=== PATIENT | female | born 1955 | race Caucasian/White ===

== ENCOUNTER 2021-04-30 02:36 | Emergency (ER) | payer SELFPAY ==
[~2021-04-30] VITALS: Ht 167.6 cm; Wt 75.5 kg
--- NOTE | 2021-04-30 02:41 | PHYS DOC ---
Past History Past Medical History: Alcoholism Alcohol Use: Heavy General Adult HPI: HPI: " Fuck it.. just fuck..it.. ".. ".. I just fell".. Patient is a 65 year old female who presents with above hx of excessive ETOH intake and a trip and fall. Pt. has 5 cm lac to right scalp/fore head. Has abrasion and edema to right cheek,and face. . Patient extremely poor historian due to her intoxication. 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 Patient very poor historian. Patient currently localizes pain to primary to her forehead laceration. Various bystanders who witnessed her fall at the ' "[employer]", report trip with fall into [employer] rail. Some report loss of consciousness, other stated no loss of consciousness. All reported heavy alcohol intake prior the trip and fall. Pt. has had an intentional Wt. loss this past year of approximately 60 lbs. Patient normally follows with Dr.Neal Kirby. Review of Systems: Review of Systems: Review of system is somewhat limited due to patient's appearance of marked alcohol intoxication Constitutional: Denies fever or chills Eyes: Denies change in visual acuity HENT: Denies nasal congestion or sore throat. Has complaints of forehead and facial contusion and laceration. Respiratory: Denies cough or shortness of breath Cardiovascular: Denies chest pain or edema GI: Denies abdominal pain, nausea, vomiting, bloody stools or diarrhea : Denies dysuria Musculoskeletal: Denies back pain or joint pain Integument: Denies rash Neurologic: Complains of headache. Denies, focal weakness or sensory changes Endocrine: Denies polyuria or polydipsia Lymphatic: Denies swollen glands Psychiatric: Denies depression or anxiety Family History: Family History: Noncontributory to presentation Current Medications: Current Meds: See nursing for home meds Allergies: Allergies: Penicillin Physical Exam: PE: Constitutional: acute distress, intoxicated and appearance. [] Strong smell of alcoholic beverage about her person and vomit HENT: Normocephalic, contusions right side of face and abrasions with 5 cm laceration to right forehead and scalp, bilateral external ears normal, oropharynx moist, no oral exudates, nose normal. No blood behind TM. Teeth appear to be stable. Has good bite. Eyes: PERRLA, EOMI, conjunctiva injected, no discharge. [] Neck:. no tenderness,. Patient attempting to remove collar Cardiovascular: Tachycardia heart rate regular rhythm, no murmur [, PMI to left Lungs & Thorax: Bilateral breath sounds equal and apex with few scattered wheezes on auscultation [] Abdomen: Bowel sounds decreased, soft, no tenderness, no masses, no pulsatile masses. Vomiting Skin: Warm, dry, no erythema, no rash. Poor turgor. Back: No tenderness, no CVA tenderness. [] Extremities: No tenderness, no cyanosis, no clubbing, no edema. [] Neurologic gives name and date of , moves all extremities on request,, has distal sensory function, . Generalized discoordination. Slurred speech. Psychologic: Affect angry and judgement currently obviously impaired, mood depressed EKG: EKG: My interpretation EKG shows a sinus rhythm at 66 bpm. Does have a long QT interval at 460 ms and QTC at 484 ms. No findings of acute STEMI of contralater al changes. Time of EKG is 0300 hrs. [] Radiology/Procedures: Radiology/Procedures: [address] [address] IMAGING REPORT Signed PATIENT: KALYN JIMENEZ ACCOUNT: [id number] : 1955 LOCATION: ER AGE: 65 SEX: F EXAM STATUS: PRE ER ORD. PHYSICIAN: DON GARIBAY MD REASON: fall PROCEDURE: PORTABLE CHEST 1V EXAMINATION: XR CHEST 1V CLINICAL HISTORY: Fall EXAM DATE/TIME: 04/30/2021 3:14 AM COMPARISON: None FINDINGS: Lines, Tubes, and Devices: None. Cardiomediastinal Silhouette: Normal heart size. Lungs and Pleura: Pulmonary hypoexpansion without evidence of focal airspace consolidation, pleural effusion, or pneumothorax. Bones and Soft Tissues: Degenerative changes in the thoracic spine. IMPRESSION: No evidence of acute cardiopulmonary abnormality. Electronically signed by: Reza Coughlin DO (04/30/2021 3:56 AM) [facility] DICTATED AND SIGNED BY: REZA COUGHLIN DO DATE: 04/30/21 0355 CC: DON GARIBAY MD ~MTH0 0 [][place] [address] IMAGING REPORT Signed PATIENT: KALYN JIMENEZ ACCOUNT: [id number] : 1955 LOCATION: ER AGE: 65 SEX: F EXAM STATUS: PRE ER ORD. PHYSICIAN: DON GARIBAY MD REASON: face plant into guard rail PROCEDURE: CT HEAD AND MAXILLOFACIAL WO EXAMINATION: CT HEAD AND MAXILLOFACIAL WO, CT CERVICAL SPINE WO CLINICAL HISTORY: Head trauma, face plant into guard rail TECHNIQUE: Serial axial images without IV contrast were obtained from the vertex to the foramen magnum. Spiral high resolution axial unenhanced images were obtained through the facial bones with sagittal and coronal planar reconstructions. CT of the cervical spine without IV contrast. Spiral, high resolution axial images were obtained from the skull base to the cervicothoracic junction with sagittal and coronal planar reconstructions. CT Dose Reduction Employed: One or more of the following individualized dose reduction techniques were utilized for this examination: 1. Automated exposure control 2. Adjustment of the mA and/or kV according to patient size 3. Use of iterative reconstruction technique. COMPARISON: None FINDINGS: BRAIN: Acute Change: No evidence of an acute contusion or other acute parenchymal process. Hemorrhage: No evidence of acute intracranial hemorrhage. Mass Lesion/Mass Effect: No evidence of intracranial mass or extraaxial fluid collection. No significant mass effect. Chronic Change: Scattered patchy foci of hypoattenuation in the supratentorial white matter, nonspecific but likely represents minimal microvascular ischemia. Atherosclerotic calcification of the bilateral carotid siphons. Parenchyma: No significant volume loss. Parenchyma otherwise within normal limits for age. Ventricles: Ventricles within normal limits for age. Skull Base and Soft Tissues: No evidence of acute calvarial fracture. Skin closure lakshmi along the anteromedial right frontal scalp. MAXILLOFACIAL: Soft Tissues: Mild right malar subcutaneous edema/small contusion. Facial Bones: No evidence of acute facial bone fracture. Moderate to severe right temporomandibular joint arthropathy. Orbits: No evidence of acute orbital fracture. Globes are intact. Soft tissue planes of the orbits maintained. Paranasal Sinuses: No significant sinus disease. C-SPINE: Alignment: Normal anatomic alignment. Osseous Structures: No evidence of acute fracture or spondylolisthesis. Degenerative Changes: Multilevel moderate degenerative disc disease, greatest at C5-6. On the monitor multilevel neural foraminal narrowing, greatest at C5-6 on the left. No evidence of high-grade osseous spinal stenosis. Multilevel facet arthropathy, greater on the left. Cervical Soft Tissues: No prevertebral soft tissue swelling. 1.1 cm peripherally calcified nodule in the right thyroid gland. IMPRESSION: BRAIN: No evidence of acute intracranial abnormality. Skin closure lakshmi along the right frontal scalp. MAXILLOFACIAL: No evidence of acute facial bone fracture. Mild right malar subcutaneous edema/small contusion. 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 C-SPINE: No evidence of acute osseous abnormality involving the cervical spine. Mild to moderate multilevel degenerative disc disease and neural foraminal narrowing, greatest at C5-6. 1.1 cm right thyroid nodule, recommend nonemergent/outpatient thyroid ultrasound for further evaluation. Electronically signed by: Reza Coughlin DO (04/30/2021 4:23 AM) [facility] DICTATED AND SIGNED BY: REZA COUGHLIN DO DATE: 04/30/21357 CC: DON GARIBAY MD ~MTH0 [address] [address] IMAGING REPORT Signed PATIENT: KALYN JIMENEZ ACCOUNT: [id number] : 1955 LOCATION: ER AGE: 65 SEX: F EXAM STATUS: PRE ER ORD. PHYSICIAN: DON GARIBAY MD REASON: face plant into guard rail PROCEDURE: CT HEAD AND MAXILLOFACIAL WO EXAMINATION: CT HEAD AND MAXILLOFACIAL WO, CT CERVICAL SPINE WO CLINICAL HISTORY: Head trauma, face plant into guard rail TECHNIQUE: Serial axial images without IV contrast were obtained from the vertex to the foramen magnum. Spiral high resolution axial unenhanced images were obtained through the facial bones with sagittal and coronal planar reconstructions. CT of the cervical spine without IV contrast. Spiral, high resolution axial images were obtained from the skull base to the cervicothoracic junction with sagittal and coronal planar reconstructions. CT Dose Reduction Employed: One or more of the following individualized dose reduction techniques were utilized for this examination: 1. Automated exposure control 2. Adjustment of the mA and/or kV according to patient size 3. Use of iterative reconstruction technique. COMPARISON: None FINDINGS: BRAIN: Acute Change: No evidence of an acute contusion or other acute parenchymal process. Hemorrhage: No evidence of acute intracranial hemorrhage. Mass Lesion/Mass Effect: No evidence of intracranial mass or extraaxial fluid collection. No significant mass effect. Chronic Change: Scattered patchy foci of hypoattenuation in the supratentorial white matter, nonspecific but likely represents minimal microvascular ischemia. Atherosclerotic calcification of the bilateral carotid siphons. Parenchyma: No significant volume loss. Parenchyma otherwise within normal limits for age. Ventricles: Ventricles within normal limits for age. Skull Base and Soft Tissues: No evidence of acute calvarial fracture. Skin closure lakshmi along the anteromedial right frontal scalp. MAXILLOFACIAL: Soft Tissues: Mild right malar subcutaneous edema/small contusion. Facial Bones: No evidence of acute facial bone fracture. Moderate to severe right temporomandibular joint arthropathy. Orbits: No evidence of acute orbital fracture. Globes are intact. Soft tissue planes of the orbits maintained. Paranasal Sinuses: No significant sinus disease. C-SPINE: Alignment: Normal anatomic alignment. Osseous Structures: No evidence of acute fracture or spondylolisthesis. Degenerative Changes: Multilevel moderate degenerative disc disease, greatest at C5-6. On the monitor multilevel neural foraminal narrowing, greatest at C5-6 on the left. No evidence of high-grade osseous spinal stenosis. Multilevel facet arthropathy, greater on the left. Cervical Soft Tissues: No prevertebral soft tissue swelling. 1.1 cm peripherally calcified nodule in the right thyroid gland. IMPRESSION: BRAIN: No evidence of acute intracranial abnormality. Skin closure lakshmi along the right frontal scalp. MAXILLOFACIAL: No evidence of acute facial bone fracture. Mild right malar subcutaneous edema/small contusion. 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 C-SPINE: No evidence of acute osseous abnormality involving the cervical spine. Mild to moderate multilevel degenerative disc disease and neural foraminal narrowing, greatest at C5-6. 1.1 cm right thyroid nodule, recommend nonemergent/outpatient thyroid ultrasound for further evaluation. Electronically signed by: Reza Coughlin DO (04/30/2021 4:23 AM) [facility] DICTATED AND SIGNED BY: REZA COUGHLIN DO DATE: 04/30/21 0358 CC: DON GARIBAY MD ~MTH0 0 Heart Score: C/O Chest Pain: N/A HEART Score for Chest Pain: HEART Score for Chest Pain Response (Comments) Value History Slighlty/Non-Suspicious 0 ECG Normal 0 Age >45 - < 65 1 Risk Factors 1 or 2 Risk Factors 1 Troponin < Normal Limit 0 Total 2 Risk Factors: Risk Factors: DM, Current or recent (<one month) smoker, HTN, HLP, family history of CAD, obesity. Risk Scores: Score 0 - 3: 2.5% MACE over next 6 weeks - Discharge Home Score 4 - 6: 20.3% MACE over next 6 weeks - Admit for Clinical Observation Score 7 - 10: 72.7% MACE over next 6 weeks - Early Invasive Strategies Course & Med Decision Making: Course & Med Decision Making Pertinent Labs and Imaging studies reviewed. (See chart for details) Shortly after arrival- Joseph Marques called ED- [phone]. Identified himself as her brother. Advised her date of as 1955.. Reportedly patient in good health. Has an allergy to penicillin. Procedure note: Laceration repair-laceration cleaned with peroxide.. Digital exploration showed no obvious step-off fracture on skull.. Additional cleaning with peroxide..Normal saline irrigation. Closed laceration with 5 lakshmi. Right cheek abrasion laceration clean cleaned with peroxide.. This required no lakshmi or sutures. Antibiotic ointment applied. Pt. having gradual improvement of mental. Now aware today is her brother day. Now following requests moving all extremities. Appears to be answering questions more appropriate. Pt. has removed her collar. Neck has no mid line tenderness. 0450 Hrs. Pt. discharged to care of brother at shift change. Patient to avoid further alcohol use today. Patient use ice packs as needed. Patient expect increased contusion, ecchymosis and swelling. Patient sleep of head elevated. Follow-up primary care.. Return if any concerns. Review ED work-up with primary care. At time of discharge patient amatory without problems.. Impression: 1. Closed Head Injury 2. Head Laceration 5 cm 3. Alcohol Intoxication 227 4. COVID -neg. 5. Mild hypokalemia 3.2 6.Thyroid nodule [] Dragon Disclaimer: Dragon Disclaimer: This electronic medical record was generated, in whole or in part, using a voice recognition dictation system. Dragon Disclaimer This chart was dictated in whole or in part using Voice Recognition software in a busy, high-work load, and often noisy Emergency Department environment. It may contain unintended and wholly unrecognized errors or omissions. Dragon Disclaimer This chart was dictated in whole or in part using Voice Recognition software in a busy, high-work load, and often noisy Emergency Department environment. It may contain unintended and wholly unrecognized errors or omissions. Dragon Disclaimer This chart was dictated in whole or in part using Voice Recognition software in a busy, high-work load, and often noisy Emergency Department environment. It ma y contain unintended and wholly unrecognized errors or omissions. DON GARIBAY MD Apr 30, 2021 02:41
[2021-04-30] MEDS ORDERED: ONDANSETRON PF 4 MG/2 ML VIAL. IVP ONE (02:45)
[2021-04-30] MEDS ORDERED: IV RINGERS SOLUTION,LACTATED 1,000 ML IV SCH (02:45)
[2021-04-30] MEDS ORDERED: FOLIC ACID 1 MG TABLET PO ONE (03:00)
[2021-04-30] MEDS ORDERED: DIPH,PERTUSS(ACELL),TET VAC/PF 0.5 ML SYRINGE. VAX IM ONE (03:00)
[2021-04-30] MEDS ORDERED: MVI, ADULT NO.4 WITH VIT K 10 ML, THIAMINE INJ 100 MG in IV RINGERS SOLUTION,LACTATED 1... IV ONE (03:00)
[2021-04-30 03:26] LABS: CALCIUM 8.3 mg/dL (8.5-10.1); CREATININE 0.8 mg/dL (0.6-1.0); GFR 72.4; POTASSIUM 3.2 mmol/L (3.5-5.1)
[2021-04-30] MEDS ORDERED: THIAMINE 200 MG/2 ML VIAL. IV ONE (03:26)
[2021-04-30 03:28] LABS: BASO % 0 % (0-3); EOS # 0.2 x10^3/uL (0.0-0.7); EOS % 2 % (0-3); HEMATOCRIT 43.1 % (36.0-47.0); HEMOGLOBIN 14.1 g/dL (12.0-15.5); LYMPH # 3.6 x10^3/uL (1.0-4.8); LYMPH % 39 % (24-48); MEAN CORPUSCULAR HEMOGLOBIN 30 pg (25-35); MEAN CORPUSCULAR HGB CONC 33 g/dL (31-37); MEAN CORPUSCULAR VOLUME 92 fL (79-100); MONO # 0.9 x10^3/uL (0.0-1.1); MONO % 10 % (0-9); NEUT # 4.6 x10^3uL (1.8-7.7); NEUT % 49 % (31-73); PLATELET COUNT 206 x10^3/uL (140-400); RED CELL DISTRIBUTION WIDTH 14.4 % (11.5-14.5); WHITE BLOOD COUNT 9.4 x10^3/uL (4.0-11.0)
[2021-04-30 03:39] LABS: ALBUMIN 3.4 g/dL (3.4-5.0); DIRECT BILIRUBIN 0.1 mg/dL (0.0-0.2); MAGNESIUM 2.3 mg/dL (1.8-2.4); TOTAL BILIRUBIN 0.2 mg/dL (0.2-1.0); TOTAL PROTEIN 7.1 g/dL (6.4-8.2)
[2021-04-30 03:40] LABS: BACTERIA,URINE FEW /HPF (0-FEW); BILIRUBIN,URINE NEG (NEG); CLARITY,URINE CLEAR; COLOR,URINE STRAW; GLUCOSE,URINE NEG (NEG); NITRITE,URINE NEG (NEG); RBC,URINE 0 /HPF (0-2); SQUAMOUS EPITHELIAL CELL,UR OCC /LPF; UROBILINOGEN,URINE 0.2 mg/dL (0.2 mg/dL); WBC,URINE 0 /HPF (0-4)
[2021-04-30 03:45] LABS: BARBITURATES NEG (NEG); BENZODIAZEPINES NEG (NEG); CANNABINOIDS NEG (NEG); COCAINE NEG (NEG); METHADONE NEG (NEG); OPIATES NEG (NEG); PHENCYCLIDINE NEG (NEG)
[2021-04-30 03:52] LABS: AMPHETAMINE/METHAMPHETAMINE NEG (NEG)
--- NOTE | 2021-04-30 03:58 | RAD ---
EXAMINATION: XR CHEST 1V CLINICAL HISTORY: Fall EXAM DATE/TIME: 04/30/2021 3:14 AM COMPARISON: None FINDINGS: Lines, Tubes, and Devices: None. Cardiomediastinal Silhouette: Normal heart size. Lungs and Pleura: Pulmonary hypoexpansion without evidence of focal airspace consolidation, pleural e ffusion, or pneumothorax. Bones and Soft Tissues: Degenerative changes in the thoracic spine. IMPRESSION: No evidence of acute cardiopulmonary abnormality. Electronically signed by: Reza Wise DO (04/30/2021 3:56 AM) NURY
--- NOTE | 2021-04-30 04:25 | RAD ---
EXAMINATION: CT HEAD AND MAXILLOFACIAL WO, CT CERVICAL SPINE WO CLINICAL HISTORY: Head trauma, face plant into guard rail TECHNIQUE: Serial axial images without IV contrast were obtained from the vertex to the foramen magnum. Spiral high resolution axial unenhanced images were obtained through the facial bones with sagittal a nd coronal planar reconstructions. CT of the cervical spine without IV contrast. Spiral, high resolution axial images were obtained from the skull base to the cervicothoracic junction with sagittal and coronal planar reconstructions. CT Dose Reduction Employed: One or more of the following individualized dose reduction techniques wer e utilized for this examination: 1. Automated exposure control 2. Adjustment of the mA and/or kV ac cording to patient size 3. Use of iterative reconstruction technique. COMPARISON: None FINDINGS: BRAIN: Acute Change: No evidence of an acute contusion or other acute parenchymal process. Hemorrhage: No evidence of acute intracranial hemorrhage. Mass Lesion/Mass Effect: No evidence of intracranial mass or extraaxial fluid collection. No signific ant mass effect. Chronic Change: Scattered patchy foci of hypoattenuation in the supratentorial white matter, nonspeci fic but likely represents minimal microvascular ischemia. Atherosclerotic calcification of the bilate ral carotid siphons. Parenchyma: No significant volume loss. Parenchyma otherwise within normal limits for age. Ventricles: Ventricles within normal limits for age. Skull Base and Soft Tissues: No evidence of acute calvarial fracture. Skin closure lakshmi along the anteromedial right frontal scalp. MAXILLOFACIAL: Soft Tissues: Mild right malar subcutaneous edema/small contusion. Facial Bones: No evidence of acute facial bone fracture. Moderate to severe right temporomandibular j oint arthropathy. Orbits: No evidence of acute orbital fracture. Globes are intact. Soft tissue planes of the orbits ma intained. Paranasal Sinuses: No significant sinus disease. C-SPINE: Alignment: Normal anatomic alignment. Osseous Structures: No evidence of acute fracture or spondylolisthesis. Degenerative Changes: Multilevel moderate degenerative disc disease, greatest at C5-6. On the monitor multilevel neural foraminal narrowing, greatest at C5-6 on the left. No evidence of high-grade osseo us spinal stenosis. Multilevel facet arthropathy, greater on the left. Cervical Soft Tissues: No prevertebral soft tissue swelling. 1.1 cm peripherally calcified nodule in the right thyroid gland. IMPRESSION: BRAIN: No evidence of acute intracranial abnormality. Skin closure lakshmi along the right frontal scalp. MAXILLOFACIAL: No evidence of acute facial bone fracture. Mild right malar subcutaneous edema/small contusion. 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 C-SPINE: No evidence of acute osseous abnormality involving the cervical spine. Mild to moderate multilevel degenerative disc disease and neural foraminal narrowing, greatest at C5- 6. 1.1 cm right thyroid nodule, recommend nonemergent/outpatient thyroid ultrasound for further evaluati on. Electronically signed by: Reza Wise DO (04/30/2021 4:23 AM) [facility]
[2021-04-30 06:14] VITALS: BP 101/54
--- NOTE | 2021-05-01 10:27 | EKG ---
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
== END 2021-04-30 06:15 | disposition home or self-care (01) ==
LOC: ER 02:36
DX: S01.81XA Laceration without foreign body of other part of head, initial encounter (principal); S01.01XA Laceration without foreign body of scalp, initial encounter; F10.229 Alcohol dependence with intoxication, unspecified; E04.1 Nontoxic single thyroid nodule; E87.6 Hypokalemia; Z20.822 Contact with and (suspected) exposure to COVID-19; Y90.7 Blood alcohol level of 200-239 mg/100 ml; W01.0XXA Fall on same level from slipping, tripping and stumbling without subsequent striking against object, initial encounter; Y93.89 Activity, other specified; Y92.89 Other specified places as the place of occurrence of the external cause; Y99.8 Other external cause status
CPT/HCPCS: 12013; 70450; 70486; 71045; 72125; 80048; 80076; 80307; 81001; 82550; 83690; 83735; 83880; 84443; 84484; 85025; 85379; 85610; 85730; 87426; 90471; 90715; 93005; 96365; 96375; 99285; C9803; G0480; J2405; J7120; U0003; 12002